=== PATIENT | male | born 1970 | race Caucasian/White ===

== ENCOUNTER → 2020-02-26 | Outpatient (CLI) | payer OTHER ==
--- NOTE | 2020-02-26 14:06 | MRI ---
EXAM DESCRIPTION: Brain w/oContrast CLINICAL HISTORY: 49 years Male, PERSISTENT HEADACHE COMPARISON: None. TECHNIQUE: Multisequence, multiplanar images of the brain obtained without intravenous contrast. FINDINGS: Brain Parenchyma, Ventricles, Meninges: No restricted diffusion. No acute intracranial hemorrhage. Normal ventricles and sulci. No abnormal signal alteration of the brain parenchyma. No abnormal extra-axial fluid collection. Vascular Structures: Normal flow voids for the major intracranial arteries and dural venous sinuses. Calvarium, paranasal sinuses, mastoids, and orbits: No abnormal calvarial or skull base marrow signal changes. Mild mucosal thickening of the maxillary and ethmoid sinuses. Remaining paranasal sinuses and mastoids are clear. Grossly unremarkable orbits. IMPRESSION: 1. No acute intracranial abnormality. 2. Mild ethmoid and maxillary sinus disease. Electronically signed by: Juan David Hill MD 02/26/2020 2:05 PM CDT
== END ==
LOC: MRI 13:22
PROVIDERS: ATTEND Family Medicine
DX: G44.52 New daily persistent headache (NDPH) (principal); J01.00 Acute maxillary sinusitis, unspecified; J01.20 Acute ethmoidal sinusitis, unspecified

== ENCOUNTER → 2020-02-29 | Outpatient (CLI) | payer SELFPAY | LOC: GMAJ 19:19 | PROVIDERS: ATTEND Family Medicine | DX: E83.119 Hemochromatosis, unspecified (principal) ==